=== PATIENT | female | born 1995 | race Caucasian/White ===

== ENCOUNTER → 2016-11-16 | Outpatient (REF) | payer OTHER ==
[~2016-11-16] MED LIST: ACET50TA PO; ANUS2.5C2 TOP; BENA25CA2 PO; DOCU10CA PO; IBUP80TA PO; MOM30SS PO; VITAPRTA PO
[2016-11-17 10:54] LABS: MEAN CORPUSCULAR HEMOGLOBIN 29.9 pg (27.0-33.0); MEAN CORPUSCULAR HGB CONC 32.9 g/dl (32.0-36.5); PLATELET COUNT, AUTOMATED 328 k/mm3 (150-450); RED CELL DISTRIBUTION WIDTH 12.4 % (11.5-14.5); WHITE BLOOD COUNT 8.4 K/mm3 (4.0-10.0)
[2016-11-17 10:55] LABS: FREE T4 1.03 NG/DL (0.76-1.46)
[2016-11-17 11:34] LABS: BANDS 1 % (< 11); EOSINOPHILS 8 % (0-5)
== END ==
LOC: M SFHCADAM 14:12
PROVIDERS: ATTEND Family Medicine
DX: Z87.42 Personal history of other diseases of the female genital tract (principal); F41.9 Anxiety disorder, unspecified

== ENCOUNTER → 2017-01-15 | Outpatient (CLI) | payer OTHER ==
[2017-01-15 18:43] LABS: BASO % 0.3 % (0.0-1.0); EOS # 0.1 K/mm3 (0.0-0.50); EOS % 1.5 % (0.0-3.0); LARGE UNSTAINED CELL # 0.2 K/mm3 (0.0-0.4); LARGE UNSTAINED CELL % 1.8 % (0.0-4.0); LYMPH # 1.5 K/mm3 (1.5-6.5); LYMPH % 17.8 % (24.0-44.0); MEAN CORPUSCULAR HEMOGLOBIN 29.9 pg (27.0-33.0); MEAN CORPUSCULAR HGB CONC 34.6 g/dl (32.0-36.5); MEAN CORPUSCULAR VOLUME 86.5 fl (80.0-96.0); MONO # 0.6 K/mm3 (0.0-0.8); MONO % 7.7 % (0.0-5.0); NEUTROPHILS # 5.8 K/mm3 (1.8-7.7); NEUTROPHILS % 70.9 % (36.0-66.0); PLATELET COUNT, AUTOMATED 324 k/mm3 (150-450); RED CELL DISTRIBUTION WIDTH 11.6 % (11.5-14.5); WHITE BLOOD COUNT 8.2 K/mm3 (4.0-10.0)
[2017-01-18 10:31] LABS: HBsAg Prenatal NEGATIVE (NEGATIVE)
[2017-01-18 14:26] LABS: CONTROL LINE INT CTR LINE PRESENT; HIV SCRN NEGATIVE (NEGATIVE); HIV SCRN1 NEGATIVE (NEGATIVE)
== END ==
LOC: M SMT 14:32
PROVIDERS: ATTEND Specialist
DX: Z34.81 Encounter for supervision of other normal pregnancy, first trimester (principal)

== ENCOUNTER → 2017-03-22 | Outpatient (CLI) | payer OTHER ==
--- NOTE | 2017-03-22 12:15 | REP ---
Clinical: Anatomical evaluation. Comparison: None . Findings: Examination demonstrates a single live intrauterine in breech presentation. motion is identified by technologist. Placenta is noted posteriorly and grade zero without evidence for placenta previa or abruption. Amniotic fluid volume is normal. Cervix measures 3.1 cm in length and appears closed. No evidence for nuchal cord. Gestational age by LMP 19 weeks 1 day with GIDEON 08/15/2017 . Gestational age by current measurements 19 weeks 1 day with GIDEON the 08/15/2017 . FHR equals 152 beats per minute. BPD 4.2 cm 18 weeks 6 days HC 16.4 cm 19 weeks 1 day AC 14.8 cm 20 weeks 1 day FL 3.0 cm 19 weeks 1 day HL 2.7 cm 18 weeks 4 days HC/AC ratio 1.10 Estimated weight 299 grams ( 64th percentile). Anatomical assessment demonstrates normal structures including cranium, choroid plexus, cavum, cerebellum/posterior fossa, facial features, lungs, four-chamber heart/ventricular outflow tracts, diaphragm, stomach, cord insertion, kidneys/bladder, and extremities. A two-vessel cord with single umbilical artery is appreciated. Suboptimal evaluation of the spine due to positioning. Mild renal pelviectasis is within normal range. Impression: 1. Single live intrauterine in breech presentation demonstrating appropriate interval growth. 2. Anatomical limitations and findings as described above may warrant reevaluation and follow-up. Signed by Jeremias Chilel MD 03/22/2017 12:06 P
== END ==
LOC: M RAD 10:52
PROVIDERS: ATTEND Advanced Practice Midwife
DX: Z36 Encounter for antenatal screening of mother (principal)

== ENCOUNTER → 2017-05-05 | Outpatient (CLI) | payer OTHER ==
[~2017-05-05] MED LIST changes: +IBUP-1114 PO
--- NOTE | 2017-05-05 13:48 | REP ---
Clinical: Anatomical evaluation. Comparison: 03/22/2017 . Findings: Examination demonstrates a single live intrauterine in cephalic presentation. motion is identified by technologist. Placenta is noted posteriorly and grade zero without evidence for placenta previa or abruption. Amniotic fluid volume is normal. Cervix measures 4.3 cm in length and appears closed. No evidence for nuchal cord. Gestational age by LMP 25 weeks 3 days with GIDEON 08/15/2017 . Gestational age by current measurements 26 weeks 3 days with GIDEON 08/08/2017 . FHR equals 131 beats per minute. Estimated weight 915 grams ( 68th percentile). Anatomical assessment demonstrates normal structures including cranium, choroid plexus, cavum, cerebellum/posterior fossa, facial features, lungs, four-chamber heart/ventricular outflow tracts, diaphragm, stomach, cord insertion, kidneys/bladder, spine, and extremities. A single umbilical artery is again appreciated. Impression: Single live intrauterine in cephalic presentation demonstrating appropriate interval growth. In conjunction with prior examination anatomical assessment is essentially complete and normal. A single umbilical artery again noted. Signed by Jeremias Chilel MD 05/05/2017 01:40 P
== END ==
LOC: M RAD 12:38
PROVIDERS: ATTEND Specialist
DX: Z36 Encounter for antenatal screening of mother (principal)

== ENCOUNTER → 2017-05-19 | Outpatient (CLI) | payer OTHER ==
[2017-05-19 12:34] LABS: BASO % 0.2 % (0.0-1.0); EOS # 0.3 K/mm3 (0.0-0.50); EOS % 2.5 % (0.0-3.0); LARGE UNSTAINED CELL # 0.1 K/mm3 (0.0-0.4); LARGE UNSTAINED CELL % 1.2 % (0.0-4.0); LYMPH # 1.1 K/mm3 (1.5-6.5); LYMPH % 9.5 % (24.0-44.0); MEAN CORPUSCULAR HEMOGLOBIN 32.1 pg (27.0-33.0); MEAN CORPUSCULAR HGB CONC 34.8 g/dl (32.0-36.5); MEAN CORPUSCULAR VOLUME 92.1 fl (80.0-96.0); MONO # 0.8 K/mm3 (0.0-0.8); MONO % 6.6 % (0.0-5.0); NEUTROPHILS # 9.4 K/mm3 (1.8-7.7); PLATELET COUNT, AUTOMATED 295 k/mm3 (150-450); RED CELL DISTRIBUTION WIDTH 12.4 % (11.5-14.5); WHITE BLOOD COUNT 11.7 K/mm3 (4.0-10.0)
== END ==
LOC: M SMT 09:34
PROVIDERS: ATTEND Specialist
DX: Z87.51 Personal history of pre-term labor (principal); Z34.82 Encounter for supervision of other normal pregnancy, second trimester

== ENCOUNTER → 2017-06-09 | Outpatient (CLI) | payer OTHER ==
--- NOTE | 2017-06-09 14:02 | REP ---
The tear obstetric ultrasound for growth: There is a single intrauterine gestation in a vertex presentation. There is movement and cardiac activity, the heart rate is 132 beats per minute. The placenta is posterior. There is no placenta previa or abruptio. The placenta is grade zero. The amniotic fluid volume subjectively is normal. The amniotic fluid index is 16.7 pounds is a 0.9 - 23.6). The maternal adnexa and cul-de-sac are unremarkable. By today's ultrasound the gestational age is 30 weeks 1 day with an GIDEON of 08/17/2017. The gestational age by the first ultrasound is 30 weeks 3 days and by LMP 30 weeks 3 days. weight is 1500 grams (3 pounds, 4 ounces). This is the 34th percentile for 30 weeks 3 days. The following anatomic structures are identified and are unremarkable: Cranium, choroid plexus, cavum septum pellucidum, cerebellum/posterior fossa, face, facial profile, lungs, four-chamber heart, cardiac right and left ventricular outflow tracts, diaphragm, stomach, cord insertion, kidneys, bladder, spine, and upper lower extremities. The umbilical cord contains a single umbilical artery. This is unchanged from prior studies. Signed by Benjamin Weber MD 06/09/2017 01:54 P
== END ==
LOC: M RAD 09:37
PROVIDERS: ATTEND Obstetrics & Gynecology
DX: Z36 Encounter for antenatal screening of mother (principal)

== ENCOUNTER 2017-06-21 11:04 | Emergency (ER) | payer OTHER ==
[~2017-06-21] VITALS: Ht 170.2 cm; Wt 72.9 kg
[~2017-06-21 11:04] MED LIST changes: -IBUP-1114 PO
--- NOTE | 2017-06-21 14:56 | REP ---
Limited obstetric sonography: History: 32 weeks gestation. Patient fell. Findings: Scanning through the gravid uterus demonstrates a viable single intrauterine gestation in a breech lie. heart rate is recorded at 140 beats a minute. A posterior grade 1 placenta is seen without evidence of previa. Closed cervical length is 3.1 cm viewed transabdominally. Amniotic fluid is subjectively normal. LUIS ANGEL is normal at 17.6 cm. S/D ratio in the umbilical cord artery is slightly low by Doppler at 1.82 (2.45-3.45). No complication is identified. Signed by Ted Merino MD 06/21/2017 03:08 P
[2017-06-21 16:45] VITALS: BP 113/62
== END 2017-06-21 16:46 | disposition admitted as inpatient to this hospital (09) ==
LOC: M ED 11:04
DX: O99.89 Other specified diseases and conditions complicating pregnancy, childbirth and the puerperium (principal); R10.31 Right lower quadrant pain; O36.8130 Decreased fetal movements, third trimester, not applicable or unspecified; W19.XXXA Unspecified fall, initial encounter; Y92.9 Unspecified place or not applicable; Y93.9 Activity, unspecified; Y99.9 Unspecified external cause status; Z3A.32 32 weeks gestation of pregnancy; Z79.899 Other long term (current) drug therapy

== ENCOUNTER 2017-06-21 16:51 | Outpatient (CLI) | payer OTHER ==
[~2017-06-21] VITALS: Ht 170.2 cm; Wt 72.0 kg
[2017-06-21 17:00] VITALS: BP 117/60
== END 2017-06-21 18:41 | disposition home or self-care (01) ==
LOC: M LDO 16:51
PROVIDERS: ATTEND Advanced Practice Midwife
DX: O99.89 Other specified diseases and conditions complicating pregnancy, childbirth and the puerperium (principal); W19.XXXA Unspecified fall, initial encounter; X58.XXXA Exposure to other specified factors, initial encounter; Y93.9 Activity, unspecified; Y92.9 Unspecified place or not applicable; Y99.8 Other external cause status; Z3A.32 32 weeks gestation of pregnancy

== ENCOUNTER → 2017-07-19 | Outpatient (CLI) | payer OTHER ==
[~2017-07-19] MED LIST changes: +IBUP-1114 PO
--- NOTE | 2017-07-19 10:39 | REP ---
Obstetric ultrasound for growth: There is a single intrauterine gestation in a vertex presentation. There is movement and cardiac activity, the heart rate is 132 beats per minute. The placenta is posterior. There is no previa or abruptio. The placenta is grade 1. The amniotic fluid volume subjectively is normal. The amniotic fluid index is 18.3 (7.7 - 24.9). The cervix 3.0 cm. Maternal adnexa and cul-de-sac are unremarkable. By the ultrasound today gestational age is 35 weeks 3 days. Gestational age by the first ultrasound is 36 weeks 1 day and by LMP 36 weeks 1 day. weight is 2671 grams (5 pounds, 14 ounces). weight is is the 39th percentile for 36 weeks 1 day. The following anatomic structures are identified and are unremarkable: Cranium, choroid plexus , cavum septum pellucidum, cerebellum/posterior fossa, facial profile, face, upper lip, lungs, four-chamber heart, cardiac right and left ventricular outflow tracts, diaphragm, stomach, cord insertion, kidneys, bladder and spine. Suboptimally demonstrated are the three-vessel cord in the upper lower extremities. A followup study dedicated to these structures might be considered. Otherwise, there are no anomalies. Signed by Benjamin Weber MD 07/19/2017 10:31 A
== END ==
LOC: M RAD 09:27
PROVIDERS: ATTEND Advanced Practice Midwife
DX: Z36 Encounter for antenatal screening of mother (principal)

== ENCOUNTER → 2017-07-21 | Outpatient (REF) | payer OTHER | LOC: M LAB REF 13:10 | PROVIDERS: ATTEND Advanced Practice Midwife | DX: Z34.83 Encounter for supervision of other normal pregnancy, third trimester (principal) ==

== ENCOUNTER 2017-08-17 22:00 | Inpatient (IN) | payer OTHER ==
[~2017-08-17] VITALS: Ht 170.2 cm; Wt 74.0 kg
[~2017-08-17 22:00] MED LIST changes: -IBUP-1114 PO
[2017-08-17] MEDS ORDERED: LACTATED RINGER'S 1000 ML IV STA (22:31)
[2017-08-17] MEDS ORDERED: LR 1,000 ML IV SCH (22:31)
[2017-08-17 22:43] LABS: MEAN CORPUSCULAR HEMOGLOBIN 29.4 pg (27.0-33.0); MEAN CORPUSCULAR HGB CONC 34.1 g/dl (32.0-36.5); MEAN CORPUSCULAR VOLUME 86.2 fl (80.0-96.0); RED CELL DISTRIBUTION WIDTH 13.1 % (11.5-14.5); WHITE BLOOD COUNT 17.5 10^3/uL (4.0-10.0)
[2017-08-17] MEDS ORDERED: FENTANYL 2MCG/ML ROPIVACAINE 0.2% IN 0.9% NACL 200ML IVBAG As Ordered ONE (22:44)
[2017-08-17] MEDS ORDERED: ONDANSETRON 4MG/2ML VIAL (J2405) IV PRN (23:45)
[2017-08-17] MEDS ORDERED: NALOXONE INJ 0.4 MG/1 ML VIAL (J2310) IV PRN (23:45)
[2017-08-17] MEDS ORDERED: diphenhydrAMINE INJ 50MG/ML VIAL (J1200) IV PRN (23:45)
[2017-08-17] MEDS ORDERED: LACTATED RINGER'S 1000 ML IV PRN (23:45)
[2017-08-17] MEDS ORDERED: EPIDURAL/PCA KEYS XX PRN (23:45)
[2017-08-17] MEDS ORDERED: EPIDURAL COMMENT XX SCH (23:45)
[2017-08-17] MEDS ORDERED: ePHEDrine SULFATE 25 MG/5 ML(5MG/ML) SYRINGE IV PRN (23:45)
[2017-08-17] MEDS ORDERED: FENTANYL/ROPIVACAINE/NACL BAG 200 ML EPIDURAL SCH (23:45)
[2017-08-17] MEDS ORDERED: REFRIGERATOR IV KEYS XX PRN (23:45)
[2017-08-18] MEDS ORDERED: OXYTOCIN DRIP 30 UNITS in APPROPRIATE DILUENT 1 EA IV SCH ×2 (03:15→05:28)
[2017-08-18] MEDS ORDERED: LR 1,000 ML IV SCH (05:28)
[2017-08-18] MEDS ORDERED: ONDANSETRON 4MG/2ML VIAL (J2405) IV PRN (05:30)
[2017-08-18] MEDS ORDERED: DIBUCAINE 1% OINTMENT 30GM TOP PRN (05:30)
[2017-08-18] MEDS ORDERED: DOCUSATE SODIUM 100 MG CAP PO PRN (05:30)
[2017-08-18] MEDS ORDERED: ACETAMINOPHEN 500 MG TAB PO PRN (05:30)
[2017-08-18] MEDS ORDERED: RHOGAM 300 MCG (1500 IU) INJ (J2790) IM SCH (05:30)
[2017-08-18] MEDS ORDERED: IBUPROFEN 800 MG TAB PO PRN (05:30)
[2017-08-18] MEDS ORDERED: PROMETHAZINE 25 MG TAB PO PRN (05:30)
[2017-08-18] MEDS ORDERED: MEASLES,MUMPS,RUBELLA VACCINE INJ (MMR-II) (90707) SC SCH (05:30)
[2017-08-18 08:10] VITALS: BP 109/58
[2017-08-18] MEDS: PRENATAL VITAMINS CHEWABLE TABLET PO SCH (09:00)
[2017-08-18 18:00] VITALS: BP 111/59
[2017-08-19 06:00] VITALS: BP 101/55
[2017-08-19] MEDS: PRENATAL VITAMINS CHEWABLE TABLET PO SCH (08:09)
[2017-08-19 10:01] VITALS: BP 111/57
[2017-08-19 18:00] VITALS: BP 110/52
[2017-08-20 06:00] VITALS: BP 107/54
[2017-08-20 08:30] VITALS: BP 107/54
[2017-08-20] MEDS: PRENATAL VITAMINS CHEWABLE TABLET PO SCH (09:40)
[2017-08-20] MEDS ORDERED: IBUP-1114 PO (10:11)
[2017-08-20] MEDS ORDERED: ACET50TA PO ×2 (10:11)
[2017-08-22 14:20] LABS: GC Carboxy THC 60 ng/mL (Cutoff=10)
== END 2017-08-20 12:55 | disposition home or self-care (01) | DRG 560 ==
LOC: M LDO 22:00 → M LDI 22:38 → M OBS 08-18 08:01
PROVIDERS: ADMIT Obstetrics & Gynecology; ATTEND Obstetrics & Gynecology
PROC: 10E0XZZ Delivery of Products of Conception, External Approach (ICD-10-PCS; principal; 2017-08-18)
DX: O48.0 Post-term pregnancy (principal); F17.200 Nicotine dependence, unspecified, uncomplicated; Z37.0 Single live birth; Z3A.40 40 weeks gestation of pregnancy; O99.334 Smoking (tobacco) complicating childbirth

== ENCOUNTER → 2017-11-11 | Outpatient (REF) | payer OTHER | LOC: M LAB REF 19:03 | DX: Z12.4 Encounter for screening for malignant neoplasm of cervix (principal) ==

== ENCOUNTER 2019-05-18 15:54 | Emergency (ER) | payer OTHER ==
[~2019-05-18] VITALS: Ht 170.2 cm; Wt 54.5 kg
[~2019-05-18 15:54] MED LIST changes: -ACET50TA PO; +IBUP-1114 PO; +MAPA500T2 PO
[2019-05-18 16:40] LABS: BASO # 0.1 10^3/uL (0.0-0.2); BASO % 0.7 % (0.0-1.0); EOS # 0.3 10^3/uL (0.0-0.50); EOS % 3.8 % (0.0-3.0); HEMATOCRIT 37.1 % (36.0-47.0); HEMOGLOBIN 12.6 g/dl (12.0-15.5); LYMPH # 1.9 10^3/uL (1.5-6.5); LYMPH % 24.2 % (24.0-44.0); MEAN CORPUSCULAR HEMOGLOBIN 31.1 pg (27.0-33.0); MEAN CORPUSCULAR VOLUME 91.6 fl (80.0-96.0); MONO # 0.6 10^3/uL (0.0-0.8); MONO % 8.3 % (0.0-5.0); NEUTROPHILS # 4.8 10^3/uL (1.8-7.7); NEUTROPHILS % 62.6 % (36.0-66.0); PLATELET COUNT, AUTOMATED 283 10^3/uL (150-450); RED BLOOD COUNT 4.05 10^6/uL (4.00-5.40); WHITE BLOOD COUNT 7.6 10^3/uL (4.0-10.0)
[2019-05-18 16:51] LABS: BLOOD UREA NITROGEN 12 MG/DL (7-18); CALCIUM LEVEL 8.6 MG/DL (8.5-10.1); CARBON DIOXIDE LEVEL 27 MEQ/L (21-32); CHLORIDE LEVEL 109 MEQ/L (98-107); CREATININE FOR GFR 0.66 MG/DL (0.55-1.30); GLOMERULAR FILTRATION RATE > 60.0 (>60); GLUCOSE, FASTING 68 MG/DL (70-100); HCG, SERUM QUANTITATIVE 201 MIU/ML; POTASSIUM SERUM 3.7 MEQ/L (3.5-5.1); SODIUM LEVEL 141 MEQ/L (136-145)
--- NOTE | 2019-05-18 20:13 | REPVR ---
EXAM: US First Trimester, Transabdominal and US , Transvaginal EXAM DATE/TIME: 05/18/2019 6:40 PM CLINICAL HISTORY: 24 years old, female; Lmp or gestational age (in weeks): Unknown; Other: Vag bleeding; ; Additional info: Vaginal bleeding TECHNIQUE: Imaging protocol: Real-time transabdominal obstetrical ultrasound of the maternal pelvis and a first trimester , less than 14 weeks 0 days, with image documentation. Transvaginal imaging was used for better evaluation of the fetus and adnexa. COMPARISON: No relevant prior studies available. FINDINGS: Uterus: The uterus is anteverted and measures 9.2 x 4.7 x 6.9 cm. No intrauterine or gestational sac is visualized. The endometrium measures 7 mm in thickness. Cervix: Unremarkable. Right adnexa: The right ovary measures 4.1 x 2.1 x 1.5 cm. There is normal blood flow. Left adnexa: The left ovary measures 5.1 x 2.7 x 2.3 cm and contains 2 anechoic cysts, the larger measuring 2.6 x 2.5 x 2.4 cm. There is normal blood flow. Intraperitoneal: No intraperitoneal free fluid. IMPRESSION: 1.No intrauterine gestational sac. Findings can be secondary to early intrauterine or failed . Ectopic cannot be excluded. Short-term followup is advised. 2. Left ovarian simple-appearing cysts. Electronically signed by: Farzaneh Ojeda On 05/18/2019 20:13:37 PM
[2019-05-18 21:11] VITALS: BP 116/77
== END 2019-05-18 21:15 | disposition home or self-care (01) ==
LOC: M ED 15:54
DX: O20.9 Hemorrhage in early pregnancy, unspecified (principal); O34.81 Maternal care for other abnormalities of pelvic organs, first trimester; N83.202 Unspecified ovarian cyst, left side; Z3A.00 Weeks of gestation of pregnancy not specified

== ENCOUNTER → 2019-07-12 | Outpatient (REF) | payer OTHER ==
[2019-07-12 20:31] LABS: CHLAMYDIA DNA AMPLIFICATION NEGATIVE (NEGATIVE); GC DNA AMPLIFICATION NEGATIVE (NEGATIVE)
== END ==
LOC: M LAB REF 17:16
PROVIDERS: ATTEND Advanced Practice Midwife
DX: Z11.3 Encounter for screening for infections with a predominantly sexual mode of transmission (principal)

== ENCOUNTER 2019-09-27 11:19 | Emergency (ER) | payer OTHER ==
[~2019-09-27] VITALS: Ht 167.6 cm; Wt 54.4 kg
[2019-09-27] MEDS ORDERED: MIRE1IUD IU (11:28)
[2019-09-27 13:08] VITALS: BP 126/78
[2019-09-27] MEDS ORDERED: NYSTOI TOP (13:13)
[2019-09-27] MEDS ORDERED: DIFL150T PO (13:13)
[2019-09-27 13:58] LABS: CHLAMYDIA DNA AMPLIFICATION NEGATIVE (NEGATIVE); GC DNA AMPLIFICATION NEGATIVE (NEGATIVE)
== END 2019-09-27 13:42 | disposition home or self-care (01) ==
LOC: M ED 11:19
DX: B37.3 Candidiasis of vulva and vagina (principal); J45.909 Unspecified asthma, uncomplicated; Z97.5 Presence of (intrauterine) contraceptive device; F17.210 Nicotine dependence, cigarettes, uncomplicated

== ENCOUNTER → 2019-11-28 | Outpatient (CLI) | payer OTHER ==
[~2019-11-28] MED LIST changes: +DIFL150T PO; +MIRE1IUD IU; +NYSTOI TOP
[2019-11-28 18:00] LABS: ALBUMIN 4.1 GM/DL (3.2-5.2); ALT/SGPT 12 U/L (12-78); BILIRUBIN,TOTAL 0.7 MG/DL (0.2-1.0); BLOOD UREA NITROGEN 10 MG/DL (7-18); C REACTIVE PROTEIN QUANTITATIV < 0.30 MG/DL (0.00-0.30); CALCIUM LEVEL 8.8 MG/DL (8.5-10.1); CARBON DIOXIDE LEVEL 29 MEQ/L (21-32); CHLORIDE LEVEL 106 MEQ/L (98-107); CREATININE FOR GFR 0.61 MG/DL (0.55-1.30); FREE T4 1.04 NG/DL (0.76-1.46); GLOMERULAR FILTRATION RATE > 60.0 (>60); GLUCOSE, FASTING 80 MG/DL (70-100); POTASSIUM SERUM 4.2 MEQ/L (3.5-5.1); RHEUMATOID FACTOR QUANT < 10.0 IU/ML (<15.0); SODIUM LEVEL 139 MEQ/L (136-145); TOTAL PROTEIN 6.8 GM/DL (6.4-8.2)
[2019-11-28 18:11] LABS: BASO # 0.1 10^3/uL (0.0-0.2); BASO % 1.1 % (0.0-1.0); EOS # 0.3 10^3/uL (0.0-0.5); EOS % 4.9 % (0.0-3.0); HEMATOCRIT 41.8 % (36.0-47.0); HEMOGLOBIN 13.8 g/dl (12.0-15.5); LYMPH # 2.2 10^3/uL (1.5-5.0); LYMPH % 35.1 % (24.0-44.0); MEAN CORPUSCULAR HEMOGLOBIN 30.5 pg (27.0-33.0); MEAN CORPUSCULAR VOLUME 92.5 fl (80.0-96.0); MONO # 0.6 10^3/uL (0.0-0.8); MONO % 9.7 % (0.0-5.0); NEUTROPHILS % 48.9 % (36.0-66.0); PLATELET COUNT, AUTOMATED 310 10^3/uL (150-450); RED BLOOD COUNT 4.52 10^6/uL (4.00-5.40); WHITE BLOOD COUNT 6.2 10^3/uL (4.0-10.0)
--- NOTE | 2019-11-29 02:24 | REP ---
Clinical: Bilateral wrist pain. Technique: AP, lateral views of the right and left wrist. Findings: The carpal bones, surrounding osseous structures, soft tissues, and joint spaces are normal. There is no evidence for acute fracture or dislocation. No subcutaneous emphysema or radiodense foreign body. Impression: Normal bilateral wrist series. No acute fracture or dislocation Electronically Signed by Jeremias Chilel MD 11/29/2019 02:16 A
[2019-11-30 14:07] LABS: ANTINUCLEAR ANTIBODIES DIRECT Negative (Negative)
== END ==
LOC: M WUC 13:58
PROVIDERS: ATTEND Physician Assistant
DX: M25.531 Pain in right wrist (principal)

== ENCOUNTER 2020-09-12 11:37 | Emergency (ER) | payer OTHER ==
[~2020-09-12] VITALS: Ht 170.2 cm; Wt 59.8 kg
[2020-09-12] MEDS ORDERED: NAPR-837 PO (12:44)
[2020-09-12 13:01] VITALS: BP 107/76
== END 2020-09-12 13:18 | disposition home or self-care (01) ==
LOC: M ED 11:37
DX: S43.401A Unspecified sprain of right shoulder joint, initial encounter (principal); Y92.9 Unspecified place or not applicable; Y93.9 Activity, unspecified; Y99.9 Unspecified external cause status

== ENCOUNTER 2021-04-08 08:59 | Emergency (ER) | payer OTHER ==
[~2021-04-08] VITALS: Ht 170.2 cm; Wt 64.5 kg
[~2021-04-08 08:59] MED LIST changes: +NAPR-837 PO
[2021-04-08] MEDS ORDERED: ACETAMINOPHEN 500 MG TAB PO ONE (11:45)
[2021-04-08] MEDS ORDERED: AUGM875T28 PO (12:44)
[2021-04-08 12:54] VITALS: BP 122/69
== END 2021-04-08 12:55 | disposition home or self-care (01) ==
LOC: M ED 08:59
DX: K02.9 Dental caries, unspecified (principal); R68.84 Jaw pain; J01.90 Acute sinusitis, unspecified; K08.9 Disorder of teeth and supporting structures, unspecified

== ENCOUNTER 2022-01-14 08:45 | Emergency (ER) | payer OTHER ==
[~2022-01-14] VITALS: Ht 170.2 cm; Wt 61.4 kg
[~2022-01-14 08:45] MED LIST changes: +AUGM875T28 PO
[2022-01-14 10:06] LABS: APPEARANCE, URINE CLEAR (CLEAR); BACTERIA, URINE AUTO 2+ (NEGATIVE); BILIRUBIN, URINE AUTO NEGATIVE (NEGATIVE); BLOOD, URINE BLOOD 1+ (NEGATIVE); COLOR, URINE YELLOW (YELLOW); GLUCOSE, URINE (UA) AUTO NEGATIVE (NEGATIVE); GRANULAR CAST, URINE AUTO 3 /LPF; KETONE, URINE AUTO NEGATIVE (NEGATIVE); LEUKOCYTE ESTERASE, URINE AUTO 1+ (NEGATIVE); MUCUS, URINE SMALL (NEGATIVE); NITRITE, URINE AUTO NEGATIVE (NEGATIVE); PROTEIN, URINE AUTO NEGATIVE (NEGATIVE); RBC, URINE AUTO 1 /HPF (0-3); SPECIFIC GRAVITY URINE AUTO 1.005 (1.002-1.035); SQUAMOUS EPITHELIAL CELL UR AU 1 /HPF (0-6); UROBILINOGEN, URINE AUTO 0.2 mg/dL (0.0-2.0); WBC, URINE AUTO 1 /HPF (0-3)
[2022-01-14 11:20] VITALS: BP 114/59
== END 2022-01-14 11:46 | disposition home or self-care (01) ==
LOC: M ED 08:45 → EDBD 08:45 → M ED 11:46
DX: S70.311A Abrasion, right thigh, initial encounter (principal); S70.312A Abrasion, left thigh, initial encounter; R31.9 Hematuria, unspecified; V49.40XA Driver injured in collision with unspecified motor vehicles in traffic accident, initial encounter; R10.814 Left lower quadrant abdominal tenderness; J45.909 Unspecified asthma, uncomplicated; F17.200 Nicotine dependence, unspecified, uncomplicated; F12.10 Cannabis abuse, uncomplicated; Y92.9 Unspecified place or not applicable; Y93.9 Activity, unspecified; Y99.9 Unspecified external cause status

== ENCOUNTER 2022-04-07 23:17 | Inpatient (IN) | payer OTHER ==
[~2022-04-07] VITALS: Ht 170.2 cm; Wt 59.4 kg
[2022-04-07] MEDS ORDERED: ZOLO25TA PO (23:50)
[2022-04-08 01:53] LABS: HEMATOCRIT 39.5 % (36.0-47.0); HEMOGLOBIN 13.8 g/dl (12.0-15.5); MEAN CORPUSCULAR HEMOGLOBIN 31.7 pg (27.0-33.0); MEAN CORPUSCULAR HGB CONC 34.9 g/dl (32.0-36.5); MEAN CORPUSCULAR VOLUME 90.8 fl (80.0-96.0); PLATELET COUNT, AUTOMATED 353 10^3/uL (150-450); RED BLOOD COUNT 4.35 10^6/uL (4.00-5.40); WHITE BLOOD COUNT 8.9 10^3/uL (4.0-10.0)
[2022-04-08 02:24] LABS: ACETAMINOPHEN LEVEL < 2.0 UG/ML (10.0-30.0); ALBUMIN 3.5 GM/DL (3.2-5.2); ALT/SGPT 18 U/L (12-78); BILIRUBIN,DIRECT < 0.1 MG/DL (0.0-0.2); BILIRUBIN,TOTAL 0.3 MG/DL (0.2-1.0); BLOOD UREA NITROGEN 7 MG/DL (7-18); CALCIUM LEVEL 8.5 MG/DL (8.5-10.1); CARBON DIOXIDE LEVEL 26 MEQ/L (21-32); CHLORIDE LEVEL 110 MEQ/L (98-107); CREATININE FOR GFR 0.66 MG/DL (0.55-1.30); ETHYL ALCOHOL (ETHANOL) 0.135 % (0.000-0.010); GLOMERULAR FILTRATION RATE > 60.0 (>60); GLUCOSE, FASTING 95 MG/DL (70-100); POTASSIUM SERUM 3.3 MEQ/L (3.5-5.1); SALICYLATE LEVEL < 1.7 MG/DL (5.0-30.0); SODIUM LEVEL 145 MEQ/L (136-145); TOTAL PROTEIN 6.7 GM/DL (6.4-8.2)
[2022-04-08 02:27] LABS: AMPHETAMINES LEVEL URINE NEGATIVE (NEGATIVE); BARBITURATES URINE NEGATIVE (NEGATIVE); BENZODIAZEPINES URINE NEGATIVE (NEGATIVE); CANNABINOIDS URINE POSITIVE (NEGATIVE); COCAINE METABOLITE URINE NEGATIVE (NEGATIVE); METHADONE URINE NEGATIVE (NEGATIVE); OPIATES URINE NEGATIVE (NEGATIVE); PHENCYCLIDINE URINE NEGATIVE (NEGATIVE)
[2022-04-08 02:54] LABS: RSV AMPLIFICATION NEGATIVE (NEGATIVE)
[2022-04-08] MEDS ORDERED: POTASSIUM CHLORIDE 10MEQ SR TABLET PO ONE (02:55)
[2022-04-08 08:15] LABS: HCG, SERUM QUALITATIVE NEGATIVE (NEGATIVE)
[2022-04-08] MEDS ORDERED: SERTRALINE HCL 25 MG TABLET PO SCH (09:00)
[2022-04-08] MEDS ORDERED: CETIRIZINE (ZyrTEC) 10 MG TAB PO SCH (09:00)
[2022-04-08] MEDS ORDERED: SERT50TA29 PO (09:04)
[2022-04-08] MEDS ORDERED: CETI-25 PO (09:04)
[2022-04-08] MEDS ORDERED: HOME MED LIST COMPLETE! XX SCH (09:05)
[2022-04-08] MEDS ORDERED: MAALOX 30 ML SUSP *UDC PO PRN (17:05)
[2022-04-08] MEDS ORDERED: traZODone 50 MG TAB PO PRN (17:05)
[2022-04-08] MEDS ORDERED: MOM 30ML SUSPENSION UDC PO PRN (17:05)
[2022-04-08 19:21] VITALS: BP 100/76
[2022-04-09 07:17] VITALS: BP 100/62
[2022-04-09] MEDS ORDERED: SERTRALINE HCL 25 MG TABLET PO SCH (09:00)
[2022-04-09] MEDS: CETIRIZINE (ZyrTEC) 10 MG TAB PO SCH (09:58)
[2022-04-09 16:15] LABS: BLOOD UREA NITROGEN 13 MG/DL (7-18); CALCIUM LEVEL 9.2 MG/DL (8.5-10.1); CARBON DIOXIDE LEVEL 27 MEQ/L (21-32); CHLORIDE LEVEL 107 MEQ/L (98-107); CREATININE FOR GFR 0.81 MG/DL (0.55-1.30); GLOMERULAR FILTRATION RATE > 60.0 (>60); GLUCOSE, FASTING 96 MG/DL (70-100); POTASSIUM SERUM 3.8 MEQ/L (3.5-5.1); SODIUM LEVEL 140 MEQ/L (136-145)
[2022-04-09 17:35] VITALS: BP 128/81
[2022-04-09] MEDS ORDERED: LORazepam 2 MG TAB PO PRN (18:05)
[2022-04-09] MEDS: THIAMINE 100 MG TAB PO SCH (22:01)
[2022-04-09 22:26] VITALS: BP 128/81
[2022-04-10 06:47] VITALS: BP 104/64
[2022-04-10 07:24] LABS: CHOLESTEROL RISK RATIO 2.658 (<5)
[2022-04-10] MEDS ORDERED: FOLIC ACID 1 MG TAB PO SCH (09:00)
[2022-04-10] MEDS ORDERED: MULTIVITAMINS/MINERALS THERAP 1 TAB PO SCH (09:00)
[2022-04-10] MEDS: THIAMINE 100 MG TAB PO SCH (09:29)
[2022-04-10] MEDS: CETIRIZINE (ZyrTEC) 10 MG TAB PO SCH (09:29)
[2022-04-10] MEDS: NICOTINE 21MG/24HR 1 EA TRANSDERMAL TD SCH (09:32)
[2022-04-10 14:00] VITALS: BP 117/74
[2022-04-10 16:36] VITALS: BP 117/74
[2022-04-10] MEDS: ARIPiprazole 10 MG TAB PO SCH (20:43)
[2022-04-11 06:41] VITALS: BP 114/74
[2022-04-11] MEDS: CETIRIZINE (ZyrTEC) 10 MG TAB PO SCH (08:38)
[2022-04-11] MEDS: NICOTINE 21MG/24HR 1 EA TRANSDERMAL TD SCH (08:38)
[2022-04-11] MEDS: IBUPROFEN 400MG TAB PO PRN (15:06)
[2022-04-11 16:20] VITALS: BP 120/70
[2022-04-11] MEDS: ARIPiprazole 10 MG TAB PO SCH (20:45)
[2022-04-12 07:00] VITALS: BP 118/58
[2022-04-12] MEDS: CETIRIZINE (ZyrTEC) 10 MG TAB PO SCH (07:27)
[2022-04-12] MEDS: NICOTINE 21MG/24HR 1 EA TRANSDERMAL TD SCH (07:27)
[2022-04-12] MEDS ORDERED: ARIPiprazole MONOHYDRATE 400 MG INJ (ABILIFY)(FREE PSY INPT ONLY) IM ONE (15:00)
[2022-04-12] MEDS: IBUPROFEN 400MG TAB PO PRN (16:19)
[2022-04-12 16:27] VITALS: BP 115/72
[2022-04-12] MEDS: ARIPiprazole 10 MG TAB PO SCH (21:12)
[2022-04-13 06:31] VITALS: BP 110/55
[2022-04-13] MEDS: CETIRIZINE (ZyrTEC) 10 MG TAB PO SCH (08:34)
[2022-04-13] MEDS: NICOTINE 21MG/24HR 1 EA TRANSDERMAL TD SCH (08:35)
[2022-04-13] MEDS ORDERED: ABIL10TA9 PO (09:08)
[2022-04-13] MEDS ORDERED: NICO21PAT TD (09:08)
[2022-04-13] MEDS ORDERED: TRAZ-252 PO (09:08)
[2022-04-13] MEDS: IBUPROFEN 400MG TAB PO PRN (09:47)
[2022-04-13] MEDS ORDERED: ABIL1INJ2 IM (10:51)
== END 2022-04-13 14:18 | disposition home or self-care (01) | DRG 753 ==
LOC: M ED 23:17 → M ED INP 04-08 17:01 → M PSY 04-08 18:05
PROVIDERS: ADMIT Psychiatry & Neurology Psychiatry; ATTEND Psychiatry & Neurology Psychiatry
DX: F31.9 Bipolar disorder, unspecified (principal); R45.851 Suicidal ideations; F32.9 Major depressive disorder, single episode, unspecified; F10.10 Alcohol abuse, uncomplicated; F17.200 Nicotine dependence, unspecified, uncomplicated; F12.90 Cannabis use, unspecified, uncomplicated; F34.0 Cyclothymic disorder; Z79.899 Other long term (current) drug therapy

== ENCOUNTER → 2022-06-26 | Outpatient (REF) | payer OTHER, MEDICAID ==
[~2022-06-26] MED LIST changes: +ABIL10TA9 PO; +ABIL1INJ2 IM; +CETI-25 PO; +NICO21PAT TD; +SERT50TA29 PO; +TRAZ-252 PO; +ZOLO25TA PO
[2022-06-26 19:30] LABS: GC DNA AMPLIFICATION NEGATIVE (NEGATIVE)
== END ==
LOC: M SFHCADAM 17:01
PROVIDERS: ATTEND Physician Assistant
DX: Z12.4 Encounter for screening for malignant neoplasm of cervix (principal); R87.610 Atypical squamous cells of undetermined significance on cytologic smear of cervix (ASC-US)
CPT/HCPCS: 87624; 87661; 87810; 87850; G0123

== ENCOUNTER → 2022-07-02 | Outpatient (REF) | payer OTHER ==
[2022-07-02 20:17] LABS: HEPATITIS B CORE ANTIBODY IGM NEGATIVE (NEGATIVE); HEPATITIS B SURFACE ANTIGEN NEGATIVE (NEGATIVE); HEPATITIS C VIRUS ABY INDEX < 0.0 INDEX (<0.8); HIV 1&2 SCREEN CENTAUR NEGATIVE (NEGATIVE)
== END ==
LOC: M SFHCADAM 13:55
PROVIDERS: ATTEND Physician Assistant
DX: Z11.3 Encounter for screening for infections with a predominantly sexual mode of transmission (principal); A74.9 Chlamydial infection, unspecified

== ENCOUNTER → 2022-09-17 | Outpatient (REF) | payer OTHER ==
[2022-09-18 12:09] LABS: GC DNA AMPLIFICATION NEGATIVE (NEGATIVE)
== END ==
LOC: M SFHCADAM 20:58 → M LAB REF 20:58
PROVIDERS: ATTEND Physician Assistant
DX: Z12.4 Encounter for screening for malignant neoplasm of cervix (principal)

== ENCOUNTER → 2022-11-24 | Outpatient (REF) | payer OTHER ==
[2022-11-24 14:51] LABS: HEPATITIS B SURFACE ANTIBODY NEGATIVE (POSITIVE)
[2022-11-24 15:04] LABS: HEPATITIS B SURFACE ANTIGEN NEGATIVE (NEGATIVE)
[2022-11-24 15:17] LABS: HIV 1&2 SCREEN CENTAUR NEGATIVE (NEGATIVE)
[2022-11-24 15:48] LABS: GC DNA AMPLIFICATION NEGATIVE (NEGATIVE)
== END ==
LOC: M SFHCADAM 11:09
PROVIDERS: ATTEND Physician Assistant
DX: Z72.51 High risk heterosexual behavior (principal)